=== PATIENT | male | born 1985 | race Caucasian/White ===

== ENCOUNTER 2019-04-06 15:00 | Emergency (ER) | payer BC ==
[~2019-04-06] VITALS: Ht 180.3 cm; Wt 101.6 kg
[2019-04-06 15:10] VITALS: Ht 180.3 cm; Wt 101.6 kg
[2019-04-06 16:11] LABS: UA SPECIFIC GRAVITY <=1.005 (1.005-1.035); microscopic required? YES; urine erythrocyte TRACE (NEGATIVE)
[2019-04-06 16:13] LABS: BASOPHIL % 0.5 % (0-2); PLATELET COUNT 159 x10^3mcL (130-400); RED CELL DISTRIBUTION WIDTH 13.9 % (11.5-14.5)
[2019-04-06 16:22] LABS: CALCIUM 8.1 mg/dL (8.5-10.1); CARBON DIOXIDE 28.2 mmol/L (21-32); CHLORIDE SERUM 107 mmol/L (98-107); GFR1 > 60 mL/min; GLUCOSE SERUM 95 mg/dL (74-106); POTASSIUM SERUM 3.5 mmol/L (3.5-5.1); SODIUM SERUM 144 mmol/L (136-145)
[2019-04-06 16:27] LABS: ALBUMIN 3.6 g/dL (3.4-5.0); ALKALINE PHOSPHATASE 63 U/L (46-116); ALT/SGPT 44 U/L (16-63); AST/SGOT 16 U/L (15-37); BILIRUBIN TOTAL 0.3 mg/dL (0.20-1.00); TOTAL PROTEIN, SERUM 7.1 g/dL (6.4-8.2)
[2019-04-06 19:00] VITALS: BP 135/65
== END 2019-04-06 19:00 | disposition home or self-care (01) ==
LOC: ED 15:00
PROVIDERS: Specialist
DX: S39.012A Strain of muscle, fascia and tendon of lower back, initial encounter (principal); R10.84 Generalized abdominal pain; V43.52XA Car driver injured in collision with other type car in traffic accident, initial encounter; Y93.I9 Activity, other involving external motion; Y92.413 State road as the place of occurrence of the external cause; Y99.8 Other external cause status
CPT/HCPCS: J1885; J2405; J3010; J7030; Q0092; Q9967

== ENCOUNTER 2020-01-01 04:52 | Inpatient (IN) | payer BC, SELFPAY ==
[~2020-01-01] VITALS: Ht 177.8 cm; Wt 100.7 kg
[2020-01-01 04:59] VITALS: Ht 177.8 cm; Wt 100.7 kg
[2020-01-01 07:11] LABS: CALCIUM 8.3 mg/dL (8.5-10.1); CARBON DIOXIDE 29.5 mmol/L (21-32); CHLORIDE SERUM 101 mmol/L (98-107); CREATININE SERUM 1.1 mg/dL (0.7-1.3); GFR1 > 60 mL/min; GLUCOSE SERUM 106 mg/dL (74-106); POTASSIUM SERUM 4.6 mmol/L (3.5-5.1); SODIUM SERUM 137 mmol/L (136-145)
[2020-01-01 07:15] LABS: ALBUMIN 3.5 g/dL (3.4-5.0); ALKALINE PHOSPHATASE 65 U/L (46-116); ALT/SGPT 78 U/L (16-63); AST/SGOT 47 U/L (15-37); BILIRUBIN TOTAL 0.4 mg/dL (0.20-1.00); LACTIC DEHYDROGENASE (LDH) 259 U/L (100-190); TOTAL PROTEIN, SERUM 7.6 g/dL (6.4-8.2)
[2020-01-01] MEDS ORDERED: BENZONATATE150 MG PO (07:33)
[2020-01-01 08:04] LABS: BASOPHIL % 0.2 % (0-2)
[2020-01-01 08:08] LABS: PLATELET COUNT 104 x10^3mcL (130-400)
[2020-01-01 08:37] LABS: microscopic required? YES; urine erythrocyte NEGATIVE (NEGATIVE)
[2020-01-01 12:17] LABS: MAGNESIUM 2.1 mg/dL (1.8-2.4); PHOSPHOROUS 2.6 mg/dL (2.5-4.9)
[2020-01-01 12:47] LABS: T3 TOTAL 1.06 ng/mL
[2020-01-01 14:11] VITALS: BP 112/72
[2020-01-01 14:45] LABS: FREE T4 1.18 ng/dL (0.76-1.46); FREE THYROXINE INDEX 3.4 ug/dL (1.4-4.5); T4(THYROXINE) 11.2 ug/dL (4.7-13.3)
[2020-01-01 17:23] VITALS: BP 133/64
[2020-01-01 19:53] VITALS: BP 113/70
[2020-01-02 06:25] VITALS: BP 121/80
[2020-01-02 07:49] LABS: C REACTIVE PROTEIN 2.6 mg/dL (<=0.9); CALCIUM 8.8 mg/dL (8.5-10.1); CARBON DIOXIDE 29.8 mmol/L (21-32); CHLORIDE SERUM 104 mmol/L (98-107); GFR1 > 60 mL/min; GLUCOSE SERUM 124 mg/dL (74-106); MAGNESIUM 1.9 mg/dL (1.8-2.4); PHOSPHOROUS 2.9 mg/dL (2.5-4.9); POTASSIUM SERUM 4.4 mmol/L (3.5-5.1); SODIUM SERUM 140 mmol/L (136-145)
[2020-01-02 09:22] LABS: BASOPHIL % 0.1 % (0-2); PLATELET COUNT 139 x10^3mcL (130-400); RED CELL DISTRIBUTION WIDTH 13.7 % (11.5-14.5)
[2020-01-02 09:25] VITALS: BP 112/68
[2020-01-02 12:27] VITALS: BP 113/76
[2020-01-02 17:19] VITALS: BP 118/76
[2020-01-02 20:05] VITALS: BP 145/83
[2020-01-02 21:13] VITALS: BP 112/74
[2020-01-03 05:35] VITALS: BP 98/57
[2020-01-03 07:40] VITALS: BP 117/75
[2020-01-03 07:57] LABS: C REACTIVE PROTEIN 1.6 mg/dL (<=0.9); CARBON DIOXIDE 29.1 mmol/L (21-32); CHLORIDE SERUM 102 mmol/L (98-107); CREATININE SERUM 0.9 mg/dL (0.7-1.3); GFR1 > 60 mL/min; GLUCOSE SERUM 117 mg/dL (74-106); MAGNESIUM 2.1 mg/dL (1.8-2.4); PHOSPHOROUS 3.7 mg/dL (2.5-4.9); POTASSIUM SERUM 3.9 mmol/L (3.5-5.1); SODIUM SERUM 141 mmol/L (136-145)
[2020-01-03 09:00] LABS: BASOPHIL % 0 % (0-2); PLATELET COUNT 200 x10^3mcL (130-400)
[2020-01-03] MEDS ORDERED: DECADRON4 MG PO ×2 (12:54→14:00)
[2020-01-03 13:05] VITALS: BP 117/75
[2020-01-03 13:40] VITALS: BP 107/69
== END 2020-01-03 14:42 | disposition home or self-care (01) | DRG 871 ==
LOC: ED 04:52 → DU 10:15
PROVIDERS: Emergency Medicine; ADMIT Internal Medicine; ATTEND Internal Medicine
DX: A41.89 Other specified sepsis (principal); U07.1 COVID-19; J12.89 Other viral pneumonia; R74.0 Nonspecific elevation of levels of transaminase and lactic acid dehydrogenase [LDH]
CPT/HCPCS: 36600; 83880; 84439; 85378; 87804; G0378; J0456; J0696; J1100; J1644; J1885; J2405; J7040; J7050; J7060; Q0092; U0003-CS